=== PATIENT | male | born 1990 | race Caucasian/White ===

== ENCOUNTER 2020-02-09 10:27 | Observation (INO) | payer MEDICAID, SELFPAY ==
[2020-02-09] VITALS (9 sets, daily range): BP systolic 100–177; BP diastolic 53–106; PULSE 63–88; RESP 18–22; TEMP 36.4–36.9; O2SAT 94–100; BMI 20.4; BMI 20.5; BMI 18.6
--- NOTE | 2020-02-09 10:53 | HMH.EDUTC ---
[facility] [place] Impression: Ear problem Qualifiers: Laterality: right Qualified Code(s): H93.91 - Unspecified disorder of right ear Disposition: Still a Patient Condition on Discharge: Good Referrals: PCP,No [Primary Care Provider] - As needed Time of Disposition: 11:10 Medical Decision Making - Robinson Inquiry Pt receiving controlled substance: No Robinson was queried for this patient: No Vital Signs: 02/09/20 10:28 02/09/20 10:44 02/09/20 10:46 Temperature 97.6 F 97.8 F 97.8 F Temperature Source Oral Oral Oral Pulse Rate [Left Radial] 80 88 88 Respiratory Rate 18 18 18 Blood Pressure [Left Arm] 131/82 131/93 H 131/93 H Blood Pressure Mean [Left Arm] 98 105 105 Blood Pressure Source [Left Arm] Automatic Cuff Automatic Cuff Automatic Cuff Blood Pressure Position [Left Arm] Sitting Sitting Sitting 02 Sat by Pulse Oximetry 98 98 98 Oxygen Delivery Method Room Air Room Air Room Air 02/09/20 11:44 Temperature Temperature Source Pulse Rate [Left Radial] 67 Respiratory Rate Blood Pressure [Left Arm] 177/106 H Blood Pressure Mean [Left Arm] 129 Blood Pressure Source [Left Arm] Automatic Cuff Blood Pressure Position [Left Arm] Sitting 02 Sat by Pulse Oximetry 98 Oxygen Delivery Method Room Air - Lab Data Lab Results 02/09/20 11:59: WBC 6.0, RBC 5.40, Hgb 16.8, Hct 47.8, MCV 88.5, MCH 31.1, MCHC 35.1, RDW 13.3, Plt Count 164, MPV 8.8, Neut % (Auto) 47.8, Lymph % (Auto) 29.3, [place] % (Auto) 20.5 H, Eos % (Auto) 1.3, Baso % (Auto) 1.1, Neut # (Auto) 2.9, Lymph # (Auto) 1.8, [place] # (Auto) 1.2 H, Eos # (Auto) 0.1, Baso # (Auto) 0.1 02/09/20 11:59: Sodium 139, Potassium 4.4, Chloride 101, Carbon Dioxide 31 H, Anion Gap 11.4, BUN 13, Creatinine 1.00, Estimated Creat Clear 106, Estimated GFR 87, Est GFR ( Amer) 105, Glucose 90, Calcium 10.0, Total Bilirubin 0.4, AST 28, ALT 19, Alkaline Phosphatase 70, C-Reactive Protein 5.2 H, Total Protein 7.8, Albumin 4.9, Globulin 2.9, Albumin/Globulin Ratio 1.7 Result diagrams: 02/09/20 11:59 02/09/20 11:59 Orders (Tests/Meds): ED MEDICATIONS Discontinued Medications Generic Name Dose Route Start Last Admin Trade Name Antonella PRN Reason Stop Dose Admin Ioversol 100 ml 02/09/20 12:23 02/09/20 12:24 Ioversol-320 (68%) 50ml Bottle IV 02/09/20 12:24 100 ml ONCE ONE Administration Protocol ORDERS Category Date Time Status CT head/brain wo/w con Stat Cat Scan 02/09/20 11:15 Taken Complete Blood Count Auto Diff Stat Lab 02/09/20 11:59 Results Erythrocyte Sedimentation Rate Stat Lab 02/09/20 11:59 Results Medical Decision Narrative: Patient advised that he has been having pain in the back of his neck that shoots up the back of his head and more so on the right side behind his ear. States that he has been having infections in his right ear on and off for about 5mths that has continued to get worse States that about a week ago he had greenish colored pus drain from the right ear states that he spoke with Dr Ruiz and he told him he needed to come into the ED and get checked where his child recently was in the hospital for 2 mths with Meningitis. Spoke with Dr Ruiz and he advised that he had recommended that patient come into the ED for further evaluation and Head CT Called ED and spoke with Wendie and informed her that Dr Ruiz had advised that patient go to the ED for head CT and further work up Patient was moved to room 11 without problems or complications [facility] [place] - General Stated complaint: headache, green pus coming out of ear Time Seen by Provider: 02/09/20 10:54 Mode of Arrival: Ambulatory Source of Information: Patient Limitations: No Limitations Description of Symptoms (Recalled from Triage Doc. by RN): Pt reports R ear infection on/off for a couple months . Pt reports green drainage from R ear and posterior area headaches and pressure. HEENT Symptoms (Recalled from RN notes): Yes Resp Symptoms (Recalled fro
--- NOTE | 2020-02-09 11:11 | PC.NURSE ---
Patient stating that Dr. Ruiz sent him here for a head ct. Spoke with Dr. Ruiz who states he talked to the patient's father who had told him the patient was having green drainage from his ear and stiff neck. Per Joseph patient's son was recently discharged form the hospital for menigitis. Joseph states he saw him a little while ago and checked his ear and that it was clear but treated him for an ear infection. Patient here today complaining of ear drainage, headache, and stiff neck. Spoke with ER staff and transferred patient to room 11.
--- NOTE | 2020-02-09 11:15 | CT_ITS ---
PROCEDURE: CT HEAD/BRAIN WO/W CON CLINICAL INDICATION: abscess Green drainage from right ear, headaches right-side COMPARISON: No exams were available for comparison TECHNIQUE: IV Contrast: 100ML Isovue 370 Axial images obtained. All CT scans at the facility use one or more dose reduction, viz: automated exposure control, ma/kV adjustment per patient size (including targeted exams where dose is matched to indication, i.e. head), or iterative reconstruction technique. FINDINGS: No midline shift, mass effect, intracranial hemorrhage, hydrocephalus, or extra-axial fluid collection is evident. Following contrast administration there is excellent vascular contrast. The [id number] appears normal. There is no abnormal enhancement. The calvarium has an unremarkable appearance. There is prominent diffuse hazy opacity involving the right mastoid air cells faint densities are seen in the right external ear canal. The left mastoids are clear. Both internal auditory canals appear normal. IMPRESSION: No acute intracranial pathology noted, findings of acute right mastoiditis Dictated by: Dr. Braulio Muir MD 02/10/2020 12:11 Dr. Braulio Muir MD in [place] 02/10/2020 12:11
--- NOTE | 2020-02-09 11:29 | HMH.EDEAR ---
ED Disposition Clinical Impression: Mastoiditis Ear problem Qualifiers: Laterality: right Qualified Code(s): H93.91 - Unspecified disorder of right ear Disposition: Still a Patient Condition on Discharge: Serious - Critical Care Critical Care Time: No Attestation: On 02/09/20, the high probability of a clinically significant, sudden or life threatening deterioration of the following system(s) required my full and direct attention, intervention and personal management. The time I documented below is in addition to time spent performing reported procedures but includes the following listed in this critical care notation. Medical Decision Making - Medical Records Medical records reviewed: Yes: I reviewed the patient's medical records. - Robinson Inquiry Pt receiving controlled substance: No Vital Signs: 02/09/20 10:28 02/09/20 10:44 02/09/20 10:46 Temperature 97.6 F 97.8 F 97.8 F Temperature Source Oral Oral Oral Pulse Rate Pulse Rate [Left Radial] 80 88 88 Respiratory Rate 18 18 18 Blood Pressure Blood Pressure [Left Arm] 131/82 131/93 H 131/93 H Blood Pressure Mean [Left Arm] 98 105 105 Blood Pressure Source Blood Pressure Source [Left Arm] Automatic Cuff Automatic Cuff Automatic Cuff Blood Pressure Position Blood Pressure Position [Left Arm] Sitting Sitting Sitting 02 Sat by Pulse Oximetry 98 98 98 Oxygen Delivery Method Room Air Room Air Room Air 02/09/20 11:44 02/09/20 14:04 02/09/20 15:16 Temperature 97.8 F Temperature Source Oral Pulse Rate 64 Pulse Rate [Left Radial] 67 63 Respiratory Rate 20 Blood Pressure 100/53 L Blood Pressure [Left Arm] 177/106 H 132/83 Blood Pressure Mean [Left Arm] 129 99 Blood Pressure Source Automatic Cuff Blood Pressure Source [Left Arm] Automatic Cuff Automatic Cuff Blood Pressure Position Sitting Blood Pressure Position [Left Arm] Sitting Sitting 02 Sat by Pulse Oximetry 98 100 Oxygen Delivery Method Room Air Room Air Room Air - Lab Data Lab Results 02/09/20 11:59: WBC 6.0, RBC 5.40, Hgb 16.8, Hct 47.8, MCV 88.5, MCH 31.1, MCHC 35.1, RDW 13.3, Plt Count 164, MPV 8.8, Neut % (Auto) 47.8, Lymph % (Auto) 29.3, [place] % (Auto) 20.5 H, Eos % (Auto) 1.3, Baso % (Auto) 1.1, Neut # (Auto) 2.9, Lymph # (Auto) 1.8, [place] # (Auto) 1.2 H, Eos # (Auto) 0.1, Baso # (Auto) 0.1, Total Counted 100, Neutrophils % (Manual) 43, Band Neutrophils % 1.0, Lymphocytes % (Manual) 29, Monocytes % (Manual) 25 H, Eosinophils % (Manual) 2, Platelet Estimate Normal, RBC Morphology Normal, ESR 2 02/09/20 11:59: Sodium 139, Potassium 4.4, Chloride 101, Carbon Dioxide 31 H, Anion Gap 11.4, BUN 13, Creatinine 1.00, Estimated Creat Clear 106, Estimated GFR 87, Est GFR ( Amer) 105, Glucose 90, Calcium 10.0, Total Bilirubin 0.4, AST 28, ALT 19, Alkaline Phosphatase 70, C-Reactive Protein 5.2 H, Total Protein 7.8, Albumin 4.9, Globulin 2.9, Albumin/Globulin Ratio 1.7 02/09/20 11:59: SARS-CoV-2 IgG Ab (Rapid) Positive A, SARS-CoV-2 IgM Ab (Rapid) Negative 02/09/20 13:45: Lactate 0.9 Result diagrams: 02/09/20 11:59 02/09/20 11:59 Orders (Tests/Meds): ED MEDICATIONS Generic Name Dose Route Start Last Admin Trade Name Freq PRN Reason Stop Dose Admin Acetaminophen 650 mg 02/09/20 14:54 Acetaminophen 325mg Tab PO 03/10/20 14:53 Q4HP PRN As Needed for Fever or Pain Piperacillin Sod/Tazobactam 50 mls @ 100 mls/hr 02/09/20 21:00 02/09/20 20:02 Sod 3.375 gm/ Sodium Chloride IV 02/23/20 20:59 100 mls/hr Q8 AP Administration Protocol Vancomycin HCl 1,500 mg/ 250 mls @ 125 mls/hr 02/09/20 15:00 02/09/20 15:23 Sodium Chloride IV 02/23/20 14:59 125 mls/hr 0300,1500 AP Administration Ibuprofen 400 mg 02/09/20 14:54 Ibuprofen 400 Mg Tablet PO 03/10/20 14:53 Q6HP PRN Mild Pain Nicotine 21 mg 02/09/20 18:30 02/09/20 18:57 Nicotine 21mg/24hr Patch TD 03/10/20 18:29 21 mg DAILY AP Administration
[2020-02-09 12:08] LABS: Basophils # 0.1 K/mm3 (0-0.2); Basophils % 1.1 % (0.1-2.0); Eosinophils # 0.1 K/mm3 (0.0-0.4); Eosinophils % 1.3 % (0.1-12.0); Hematocrit 47.8 % (42.0-52.0); Hemoglobin 16.8 g/dL (14.1-18.0); Lymphocytes # 1.8 K/mm3 (0.7-4.5); Lymphocytes % 29.3 % (10-50); Mean Corpuscular HGB Conc 35.1 g/dL (31.8-35.4); Mean Corpuscular Hemoglobin 31.1 pg (27.0-31.2); Mean Corpuscular Volume 88.5 fl (80-94); Mean Platelet Volume 8.8 fl (7.4-10.4); Monocytes # 1.2 K/mm3 (0.1-1.0); Monocytes % 20.5 % (1.7-9.3); Neutrophils # 2.9 K/mm3 (1.8-7.8); Neutrophils % 47.8 % (37.0-80.0); Platelet Count 164 K/mm3 (142-424); Red Cell Distribution Width 13.3 % (11.5-17.5)
[2020-02-09 12:11] LABS: MANUAL DIFFERENTIAL MANUAL DIFFERENTIAL (MANUAL DIFF)
[2020-02-09 12:17] LABS: Alanine Aminotransferase 19 U/L (12-78); Albumin Level 4.9 g/dl (3.5-5.0); Albumin/Globulin Ratio 1.7 (1.1-1.8); Alkaline Phosphatase 70 U/L (38-126); Anion Gap 11.4 mEq/L (5-15); Aspartate Amino Transferase 28 U/L (17-59); Bilirubin,Total 0.4 mg/dl (0.2-1.3); Blood Urea Nitrogen 13 mg/dl (9-20); Carbon Dioxide 31 mmol/L (22.0-30.0); Chloride 101 mmol/L (98-107); Creatinine Clearance Estimated 106 mL/min (50-200); Estimated Glomerular Filt Rate 87 ml/min (>60); GFR (African American) 105 ML/MIN (>60); Globulin 2.9 g/dL (1.3-3.2); Glucose 90 mg/dl (74-100); Potassium 4.4 mmoL/L (3.5-5.1); Sodium 139 mmol/L (136-145); Total Protein,Serum 7.8 g/dl (6.3-8.2)
[2020-02-09 12:22] LABS: C-Reactive Protein 5.2 mg/L (0-4)
[2020-02-09 12:56] LABS: Erythrocyte Sedimentation Rate 2 mm/hr (0-15)
[2020-02-09 13:06] LABS: Eosinophils % 2 % (0-3); Lymphocytes % 29 % (10-50); Monocytes % 25 % (2-9); Neutrophils % 43 % (42-76); Platelet Estimate Normal; RBC Morphology Normal; Total Cells Counted 100
--- NOTE | 2020-02-09 13:31 | PC.NURSE ---
notified pharmacy of vancomycin consult, spoke with Gerson states he will mix zosyn as well and bring it down.
--- NOTE | 2020-02-09 13:32 | PC.NURSE ---
JACKY GODDARD speaking with Dr. Souza (ENT)
--- NOTE | 2020-02-09 13:40 | P.CONPHA_ITS ---
- Pharmacy Consult Date: 02/09/20 Time: 13:40 Referring provider: DR. WHARTON Reason for Consult:: VANCOMYCIN DOSING Allergies and ADEs:: Allergies Allergy/AdvReac Type Severity Reaction Status Date / Time No Known Allergies Allergy Verified 10/05/18 11:05 Home Medications:: Home Medications Medication Instructions Recorded Confirmed Type No Known Home Medications 02/09/20 02/09/20 History Height: 1.85 m Weight: 70.307 kg Laboratory Results:: Laboratory Results - last 24 hr 02/09/20 11:59: WBC 6.0, RBC 5.40, Hgb 16.8, Hct 47.8, MCV 88.5, MCH 31.1, MCHC 35.1, RDW 13.3, Plt Count 164, MPV 8.8, Neut % (Auto) 47.8, Lymph % (Auto) 29.3, [place] % (Auto) 20.5 H, Eos % (Auto) 1.3, Baso % (Auto) 1.1, Neut # (Auto) 2.9, Lymph # (Auto) 1.8, [place] # (Auto) 1.2 H, Eos # (Auto) 0.1, Baso # (Auto) 0.1, Total Counted 100, Neutrophils % (Manual) 43, Band Neutrophils % 1.0, Lymphocytes % (Manual) 29, Monocytes % (Manual) 25 H, Eosinophils % (Manual) 2, Platelet Estimate Normal, RBC Morphology Normal, ESR 2 02/09/20 11:59: Sodium 139, Potassium 4.4, Chloride 101, Carbon Dioxide 31 H, Anion Gap 11.4, BUN 13, Creatinine 1.00, Estimated Creat Clear 106, Estimated GFR 87, Est GFR ( Amer) 105, Glucose 90, Calcium 10.0, Total Bilirubin 0.4, AST 28, ALT 19, Alkaline Phosphatase 70, C-Reactive Protein 5.2 H, Total Protein 7.8, Albumin 4.9, Globulin 2.9, Albumin/Globulin Ratio 1.7 Assessment and Plan - Assessment and plan all Dx Assessment and Plan for all problems:: Pharmacokinetic dosing service Patient: Floor: Age: 29 yo Serum creatinine: 1 mg/dL Height: 72.8 Inches Weight (kg): 70 IBW (kg): 79.44 Dosing wt(kg): 70 Estimated Creatinine clearance (ml/min): 106.0 CRCL method: Cockcroft and Gault using ibw(default). Drug selected: Vancomycin Loading dose (mg): 0 Vd (liters): 56.0 (factor used: 0.8 L/kg) Robel (hr-1): 0.092 Half life (h rs): 7.53 Recommended dose: 1500 mg Interval: 12 hrs Infusion time (hrs): 2.0 Predicted peak (mcg/mL): 36.6 Predicted trough (mcg/mL): 14.59 Total body weight is being used for vancomycin dosing. Recommendations: Give Vancomycin 1500 mg q 12 hrs with an expected Cpeak of 36.6 mcg/ml and an expected Ctrough of 14.59 mcg/ml Thank you for the consult, will continue to follow. Signature:
--- NOTE | 2020-02-09 13:45 | PC.NURSE ---
service dr jones
--- NOTE | 2020-02-09 13:48 | PC.NURSE ---
Dr Yip speaking to Dr Sheikh at this time.
--- NOTE | 2020-02-09 13:49 | PC.NURSE ---
R EAR CULTURE SENT TO LAB
--- NOTE | 2020-02-09 13:58 | PC.NURSE ---
LUNCH TRAY ORDERED
[2020-02-09 15:24] LABS: Coronavirus 19 IgG Antibody Positive (Negative); Coronavirus 19 IgM Antibody Negative (Negative)
[2020-02-09 17:23] LABS: Lactic Acid 0.9 mmol/L (0.7-2.1)
--- NOTE | 2020-02-09 18:47 | PC.NURSE ---
PT IS RESTING IN BED. NO COMPLAINTS OF DISCOMFORT. AMBULATED IN THE ROOM AND TO THE BATHROOM. ALERT AND ORIENTED X4. EATING AND DRINKING WELL. LUNG SOUNDS CLEAR. BOWEL SOUNDS NORMAL. VSS. WILL CONTINUE TO MONITOR.
[2020-02-10 03:29] VITALS: O2SAT 100
[2020-02-10 03:37] VITALS: BP 99/59; PULSE 53; RESP 14; TEMP 36.6; O2SAT 100
[2020-02-10 04:52] VITALS: BMI 18.3
[2020-02-10 07:31] LABS: Basophils # 0.1 K/mm3 (0-0.2); Basophils % 0.8 % (0.1-2.0); Eosinophils # 0.1 K/mm3 (0.0-0.4); Eosinophils % 2.6 % (0.1-12.0); Hematocrit 49.4 % (42.0-52.0); Hemoglobin 16.8 g/dL (14.1-18.0); Lymphocytes # 1.6 K/mm3 (0.7-4.5); Lymphocytes % 28.7 % (10-50); Mean Corpuscular HGB Conc 33.9 g/dL (31.8-35.4); Mean Corpuscular Hemoglobin 30.9 pg (27.0-31.2); Mean Corpuscular Volume 91.2 fl (80-94); Mean Platelet Volume 8.9 fl (7.4-10.4); Monocytes % 17.2 % (1.7-9.3); Neutrophils # 2.8 K/mm3 (1.8-7.8); Neutrophils % 50.7 % (37.0-80.0); Platelet Count 164 K/mm3 (142-424); Red Blood Count 5.42 M/mm3 (4.60-6.20); Red Cell Distribution Width 12.8 % (11.5-17.5); White Blood Count 5.5 K/mm3 (4.8-10.8)
[2020-02-10 07:38] LABS: Chloride 102 mmol/L (98-107); Potassium 3.9 mmoL/L (3.5-5.1); Sodium 141 mmol/L (136-145)
[2020-02-10 07:41] LABS: Alanine Aminotransferase 19 U/L (12-78); Albumin Level 4.8 g/dl (3.5-5.0); Albumin/Globulin Ratio 1.7 (1.1-1.8); Alkaline Phosphatase 84 U/L (38-126); Anion Gap 11.9 mEq/L (5-15); Aspartate Amino Transferase 35 U/L (17-59); Bilirubin,Total 0.5 mg/dl (0.2-1.3); Blood Urea Nitrogen 15 mg/dl (9-20); Calcium 9.7 mg/dl (8.4-10.2); Carbon Dioxide 31 mmol/L (22.0-30.0); Creatinine Clearance Estimated 79 mL/min (50-200); Estimated Glomerular Filt Rate 71 ml/min (>60); GFR (African American) 85 ML/MIN (>60); Globulin 2.9 g/dL (1.3-3.2); Glucose 98 mg/dl (74-100); Total Protein,Serum 7.7 g/dl (6.3-8.2)
[2020-02-10 07:47] VITALS: BP 132/64; PULSE 60; RESP 18; TEMP 36.7; O2SAT 99
--- NOTE | 2020-02-10 08:57 | P.CONPHA_ITS ---
[facility] Pharmacy VTE Monitoring - Patient Demographics Admission date: 02/10/20 Report Date: 02/10/20 Time: 08:57 Allergies/Adverse Reactions: Patient Allergies No Known Allergies Allergy (Verified 10/05/18 11:05) Height: 1.85 m Weight: 62.652 kg Patient Problems: Current Active Problems Ear problem (Acute) Mastoiditis (Acute) - VTE Risk Labs: VTE Related Lab Results Hgb 16.8 g/dL (14.1-18.0) 02/10/20 07:20 Hct 49.4 % (42.0-52.0) 02/10/20 07:20 Plt Count 164 K/mm3 (142-424) 02/10/20 07:20 BUN 15 mg/dl (9-20) 02/10/20 07:20 Creatinine 1.20 mg/dl (0.66-1.25) 02/10/20 07:20 Estimated Creat Clear 79 mL/min (50-200) 02/10/20 07:20 VTE Score: 0 - Prophylaxis Types of VTE Prophylaxis: TEDS Knee High (FUNMILAYO HOSE ORDER PLACED.)
--- NOTE | 2020-02-10 08:58 | HMH.HP ---
*Admission Date: 02/09/20 *Chief complaint: Pain around right ear *History of present illness: 29 year old male with no PCP and no known medical problems presented to [facility] yesterday complaining of patient in and around his right ear. Patient stated he had an injury to his ear about 13 years ago that caused a perforation of his ear drum. He had not had any problems with it until about 4 months ago when he began to have yellow drainage from his ear. He states he treated the drainage with Cipro ear drops a few times and had taken some Clindamycin by mouth a few times over the last few weeks. [facility] History Medical History: Denies:: Cancer, Diabetes Mellitus Type 1, Diabetes Mellitus Type 2, MRSA *Have you ever received a pneumonia vaccine?: No *Have you received a flu vaccine this season?: No Other Medical History: Reports: Other (traumatic right TM perforation) Other Surgeries: Yes: No Previous Surgery Amputation: No Fractures: Yes (FACIAL) - *Social History Last grade of school completed: 7th or 8th Smoking Status: Current every day smoker Tobacco Type: cigarettes # Packs/Day (cigarettes): 1 Alcohol Intake: never *Occupational Status:: employed Housing: house Household Members: spouse *Travel in the last 8 weeks: None Family Hx:: Coronary Artery Disease Review of Systems - Constitutional Denies fever(s) - Eyes Denies double vision - ENT Denies change in voice - *Cardiovascular Denies chest pain - *Respiratory Denies shortness of breath - *Gastrointestinal Denies abdominal pain - *Genitourinary Denies difficulty urinating - *Musculoskeletal Denies joint pain - Integumentary/Breasts Denies rash - *Neurologic Reports headache(s) - Psychiatric Denies confusion - Endocrine Denies flushing - Hematologic/Lymphatic Denies easy bleeding Meds Home Medications Medication Instructions Recorded Confirmed Type No Known Home Medications 02/09/20 02/09/20 History Allergies Allergy/AdvReac Type Severity Reaction Status Date / Time No Known Allergies Allergy Verified 10/05/18 11:05 Exam Vital signs and Labs for Last 24 Hours: Temp Pulse Resp BP Pulse Ox 98.0 F 60 18 132/64 99 02/10/20 07:47 02/10/20 07:47 02/10/20 07:47 02/10/20 07:47 02/10/20 07:47 Laboratory Results - last 24 hr 02/09/20 11:59: WBC 6.0, RBC 5.40, Hgb 16.8, Hct 47.8, MCV 88.5, MCH 31.1, MCHC 35.1, RDW 13.3, Plt Count 164, MPV 8.8, Neut % (Auto) 47.8, Lymph % (Auto) 29.3, [place] % (Auto) 20.5 H, Eos % (Auto) 1.3, Baso % (Auto) 1.1, Neut # (Auto) 2.9, Lymph # (Auto) 1.8, [place] # (Auto) 1.2 H, Eos # (Auto) 0.1, Baso # (Auto) 0.1, Total Counted 100, Neutrophils % (Manual) 43, Band Neutrophils % 1.0, Lymphocytes % (Manual) 29, Monocytes % (Manual) 25 H, Eosinophils % (Manual) 2, Platelet Estimate Normal, RBC Morphology Normal, ESR 2 02/09/20 11:59: Sodium 139, Potassium 4.4, Chloride 101, Carbon Dioxide 31 H, Anion Gap 11.4, BUN 13, Creatinine 1.00, Estimated Creat Clear 106, Estimated GFR 87, Est GFR ( Amer) 105, Glucose 90, Calcium 10.0, Total Bilirubin 0.4, AST 28, ALT 19, Alkaline Phosphatase 70, C-Reactive Protein 5.2 H, Total Protein 7.8, Albumin 4.9, Globulin 2.9, Albumin/Globulin Ratio 1.7 02/09/20 11:59: SARS-CoV-2 IgG Ab (Rapid) Positive A, SARS-CoV-2 IgM Ab (Rapid) Negative 02/09/20 13:45: Lactate 0.9 02/10/20 07:20: WBC 5.5, RBC 5.42, Hgb 16.8, Hct 49.4, MCV 91.2, MCH 30.9, MCHC 33.9, RDW 12.8, Plt Count 164, MPV 8.9, Neut % (Auto) 50.7, Lymph % (Auto) 28.7, [place] % (Auto) 17.2 H, Eos % (Auto) 2.6, Baso % (Auto) 0.8, Neut # (Auto) 2.8, Lymph # (Auto) 1.6, [place] # (Auto) 1.0, Eos # (Auto) 0.1, Baso # (Auto) 0.1 02/10/20 07:20: Sodium 141, Potassium 3.9, Chloride 102, Carbon Dioxide 31 H, Anion Gap 11.9, BUN 15, Creatinine 1.20, Estimated Creat Clear 79, Estimated GFR 71, Est GFR ( Amer) 85, Glucose 98, Calcium 9.7, Total Bilirubin 0.5, AST 35, ALT 19, Alkaline Phosphatase 84, Total Protein 7.7,
[2020-02-10 15:22] VITALS: BP 121/76; PULSE 71; RESP 18; TEMP 36.9; O2SAT 99
--- NOTE | 2020-02-10 17:32 | PC.NURSE ---
[id number] - Dr. Yip notified that pt is leaving AMA. Pt was instructed on need for IV antibiotics and that his blood culture bottle was positive for Staph Aureus. Pt verbalized understanding, but that he was still leaving d/t him and his arguing and that his was leaving him and taking the kids . IV taken out by nurse and pt given AMA paper along w/ instructions to call physician in AM w/ [facility] phone#. [phone] - Pt was escorted to ED admissions lobby by [facility] staff.
--- NOTE | 2020-02-11 11:56 | P.DS_ITS ---
General - General Admission date:: 02/09/20 Discharge date: 02/10/20 HPI HPI: Mr. Johnson was a 29 year old male with no PCP and no known medical problems who presented to [facility] [place] complaining of pain in and around his right ear. Patient stated he had an injury to his ear about 13 years ago that caused a perforation of his ear drum. He had not had any problems with it until about 4 months ago when he began to have yellow drainage from his ear. He stated he had treated the drainage with Cipro ear drops a few times and had taken some Clindamycin by mouth a few times over the few weeks prior. He was reportedly sent by another provider for head CT out of concern for possible abscess and intracranial extension due to recent meningitis infection in patient's son. In the ED, labs were non-actionable. CT was concerning for acute mastoiditis. He was given IV Vancomycin and Zosyn and admitted to medical service with plans for ENT consultation. Hospital Course Hospital Course: Despite resting comfortably overnight, the following afternoon the patient notified nursing staff that he planned to leave the hospital Against Medical Advice reportedly due to family issues. He was cautioned against his decision due to preliminary blood cultures growing Staph Aureus and requiring continued IV antibiotic treatment. Nevertheless, he proceeded to leave [facility]. Dr. Yip was notified of his decision and his IV was removed. He was provided the phone number for the office of A and instructed to call for followup. At the time of this writing, his right ear wound culture had also grown a cash-sensitive Pseudomonas species. 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
== END 2020-02-10 16:55 | disposition left against medical advice (07) ==
LOC: UTC 11:04 → ER 11:10 → 2ND 02-10 09:17
PROVIDERS: Admitting Provider Family Medicine; Emergency Provider Emergency Medicine; Visit Provider Family Medicine
DX: H70.91 Unspecified mastoiditis, right ear (principal); H72.01 Central perforation of tympanic membrane, right ear; Z72.0 Tobacco use
CPT/HCPCS: 36415; 70470; 80053; 83605; 85007; 85025; 85651; 86140; 86328; 87040; 87070; 87077; 87186; 87205; 96365; 99284; G0378; J2543; J3370; Q9967

== ENCOUNTER 2020-02-11 04:28 | Emergency (ER) | payer MEDICAID, SELFPAY ==
[2020-02-11 04:30] VITALS: BP 136/84; PULSE 82; RESP 16; TEMP 36.5; O2SAT 98; BMI 20.4
--- NOTE | 2020-02-11 04:38 | ECG_ITS ---
APPROVED REPORT Exam: Resting ECG HR:71 bpm ECG Measurements Heart Rate 71 AXES MA 96 P 52 QRSd 88 QRS 86 QT 406 T 81 QTc 441 Conclusion Sinus rhythm with sinus arrhythmia with short MA Otherwise normal ECG Electronically signed by : Marcio Hyde, 02/11/2020 19:09:16
--- NOTE | 2020-02-11 04:45 | XR_ITS ---
PROCEDURE: XR CHEST 2V CLINICAL HISTORY: chest heaviness Smoker COMPARISON: No exams were available for comparison FINDINGS: The cardiomediastinal silhouette and pulmonary vascularity are within normal limits. There is mild hyperinflation. There are slight increased markings in the right infrahilar region medially which may only be due to summation artifact. Cannot exclude patchy infiltrate. Follow-up suggested. No acute bony abnormalities. IMPRESSION: Possible patchy right infrahilar infiltrate with hyperinflation Dictated by: Rafa Akhtar MD 02/11/2020 05:41 Rafa Akhtar MD in [place] 02/11/2020 05:41
[2020-02-11 05:20] LABS: Anion Gap 12.6 mEq/L (5-15); Blood Urea Nitrogen 12 mg/dl (9-20); Calcium 9.6 mg/dl (8.4-10.2); Carbon Dioxide 29 mmol/L (22.0-30.0); Chloride 101 mmol/L (98-107); Creatinine Clearance Estimated 106 mL/min (50-200); Estimated Glomerular Filt Rate 87 ml/min (>60); GFR (African American) 105 ML/MIN (>60); Glucose 102 mg/dl (74-100); Potassium 3.6 mmoL/L (3.5-5.1); Sodium 139 mmol/L (136-145)
[2020-02-11 05:29] LABS: Hematocrit 45.8 % (42.0-52.0); Mean Corpuscular HGB Conc 32.8 g/dL (31.8-35.4); Mean Corpuscular Hemoglobin 29.6 pg (27.0-31.2); Mean Corpuscular Volume 90.4 fl (80-94); Mean Platelet Volume 8.8 fl (7.4-10.4); Platelet Count 164 K/mm3 (142-424); Red Blood Count 5.07 M/mm3 (4.60-6.20); Red Cell Distribution Width 12.5 % (11.5-17.5); White Blood Count 8.2 K/mm3 (4.8-10.8)
[2020-02-11 05:30] LABS: Basophils # 0.1 K/mm3 (0-0.2); Basophils % 0.7 % (0.1-2.0); Eosinophils # 0.2 K/mm3 (0.0-0.4); Eosinophils % 2.4 % (0.1-12.0); Lymphocytes # 2.1 K/mm3 (0.7-4.5); Lymphocytes % 25.3 % (10-50); Monocytes # 1.1 K/mm3 (0.1-1.0); Monocytes % 13.3 % (1.7-9.3); Neutrophils # 4.5 K/mm3 (1.8-7.8); Neutrophils % 54.8 % (37.0-80.0)
[2020-02-11 05:33] LABS: Benzodiazepines Screen,Urine Negative ng/ml (<200)
[2020-02-11 05:34] LABS: Amphetamine/Metha Screen,Urine Negative ng/ml (<1000); Barbiturates Screen,Urine Negative ng/ml (<200); Troponin I < 0.01 ng/ml (0.00-0.034)
[2020-02-11 05:35] LABS: Methadone Screen,Urine Negative ng/ml (<300)
[2020-02-11 05:36] LABS: Cannabinoid Screen,Urine Positive ng/ml (<50); Cocaine Screen,Urine Negative ng/ml (<300)
[2020-02-11 05:37] LABS: Opiate Screen,Urine Negative ng/ml (<300)
[2020-02-11 05:38] LABS: Phencyclidine Screen,Urine Negative ng/ml (<25)
--- NOTE | 2020-02-11 05:45 | HMH.EDHA ---
ED Disposition Clinical Impression: Tobacco use, Pseudomonas aeruginosa infection Tympanic membrane central perforation Qualifiers: Laterality: right Qualified Code(s): H72.01 - Central perforation of tympanic membrane, right ear Mastoiditis Qualifiers: Laterality: right Qualified Code(s): H70.91 - Unspecified mastoiditis, right ear Disposition: Home, Self-Care Condition on Discharge: Good Instructions: DI for Headache Additional Instructions: see pcp for follow up and ent Prescriptions: levoFLOXacin [Levaquin 500mg tab] 500 mg PO DAILY #7 tab Transmission Status: Pending to [id number] Referrals: Ez Yip MD [Primary Care Provider] - Yaya Souza MD [Staff Physician] - - Critical Care Critical Care Time: No Attestation: On 02/11/20, the high probability of a clinically significant, sudden or life threatening deterioration of the following system(s) required my full and direct attention, intervention and personal management. The time I documented below is in addition to time spent performing reported procedures but includes the following listed in this critical care notation. Medical Decision Making - Medical Records Medical records reviewed: Yes: I reviewed the patient's medical records. - Robinson Inquiry Pt receiving controlled substance: No Vital Signs: 02/11/20 04:30 02/11/20 05:52 02/11/20 06:30 Temperature 97.7 F Temperature Source Oral Pulse Rate [Right Brachial] 82 63 58 L Respiratory Rate 16 17 Blood Pressure [Right Arm] 136/84 121/73 112/68 Blood Pressure Mean [Right Arm] 101 89 82 Blood Pressure Source [Right Arm] Automatic Cuff Blood Pressure Position [Right Arm] Supine 02 Sat by Pulse Oximetry 98 97 98 Oxygen Delivery Method Room Air - Lab Data Lab results reviewed: Yes: I reviewed the patient's lab results. Lab Results 02/11/20 04:45: WBC 8.2 D, RBC 5.07, Hgb 15.0 D, Hct 45.8, MCV 90.4, MCH 29.6, MCHC 32.8, RDW 12.5, Plt Count 164, MPV 8.8, Neut % (Auto) 54.8, Lymph % (Auto) 25.3, [place] % (Auto) 13.3 H, Eos % (Auto) 2.4, Baso % (Auto) 0.7, Neut # (Auto) 4.5, Lymph # (Auto) 2.1, [place] # (Auto) 1.1 H, Eos # (Auto) 0.2, Baso # (Auto) 0.1 02/11/20 04:45: Sodium 139, Potassium 3.6, Chloride 101, Carbon Dioxide 29, Anion Gap 12.6, BUN 12, Creatinine 1.00, Estimated Creat Clear 106, Estimated GFR 87, Est GFR ( Amer) 105 D, Glucose 102 H, Calcium 9.6, Troponin I < 0.01 02/11/20 04:45: Urine Opiates Screen Negative, Urine Methadone Screen Negative, Ur Barbituates Screen Negative, Ur Phencyclidine Scrn Negative, Ur Amphetamines Screen Negative, U Benzodiazepines Scrn Negative, Urine Cocaine Screen Negative, U Marijuana (THC) Screen Positive H 02/11/20 04:45: ESR 6 02/11/20 04:45: C-Reactive Protein 10.0 H D, Procalcitonin 0.195 02/11/20 04:45: Urine Color Yellow, Urine Appearance Clear, Urine pH 6.0, Ur Specific [place] >= 1.030, Urine Protein Negative, Urine Glucose (UA) Negative, Urine Ketones Negative, Urine Blood Negative, Urine Nitrate Negative, Urine Bilirubin Negative, Urine Urobilinogen 1.0, Ur Leukocyte Esterase Negative, Urine WBC 3-5, Ur Squamous Epith Cells Occasional Result diagrams: 02/11/20 04:45 02/11/20 04:45 Orders (Tests/Meds): ED MEDICATIONS Generic Name Dose Route Start Last Admin Trade Name Freq PRN Reason Stop Dose Admin Sodium Chloride 1,000 mls @ 999 mls/hr 02/11/20 05:00 02/11/20 04:53 Sod Chlor 0.9% 1000ml Bag IV 02/11/20 06:00 999 mls/hr .Q1H1M AP Administration Discontinued Medications Generic Name Dose Route Start Last Admin Trade Name Freq PRN Reason Stop Dose Admin Piperacillin Sod/Tazobactam 50 mls @ 100 mls/hr 02/11/20 06:12 02/11/20 06:13 Sod 3.375 gm/ Sodium Chloride IV 02/11/20 06:41 100 mls/hr ONCE ONE Administration Protocol Ketorolac Tromethamine 30 mg 02/11/20 04:49 02/11/20 04:53 Ketorolac 30mg/Ml Vial IV 02/11/20 04:50 30 mg ONCE ONE Administration M
[2020-02-11 05:52] VITALS: BP 121/73; PULSE 63; O2SAT 97
[2020-02-11 05:58] LABS: Microscopic, Urine URINE MICROSCOPIC (MICROSCOPIC)
[2020-02-11 06:09] LABS: Appearance,Urine CLEAR (Clear); Bilirubin,Urine Negative (Negative); Blood, Urine Negative (Negative); Color,Urine YELLOW (Yellow); Glucose,Urine (UA) Negative (Negative); Ketones,Urine Negative (Negative); Leukocyte Esterase,Urine Negative (Negative); Nitrate,Urine Negative (Negative); Protein,Urine Negative (Negative); Specific Gravity, Urine >= 1.030 (1.005-1.030)
[2020-02-11 06:19] LABS: Erythrocyte Sedimentation Rate 6 mm/hr (0-15)
[2020-02-11 06:20] LABS: Squamous Epithelial Cell,Urine Occasional #/hpf (0-5)
[2020-02-11 06:24] LABS: Procalcitonin 0.195 ng/mL (0.0-2.0)
[2020-02-11 06:30] VITALS: BP 112/68; PULSE 58; RESP 17; O2SAT 98
--- NOTE | 2020-02-11 06:54 | PC.NURSE ---
Dr peters speaking with Dr schuster @ this time
[2020-02-11 07:01] VITALS: BP 115/69; PULSE 79; RESP 16; TEMP 36.7; O2SAT 98
== END 2020-02-11 07:08 | disposition home or self-care (01) ==
PROVIDERS: Emergency Provider Emergency Medicine; PCP Family Medicine
DX: H72.01 Central perforation of tympanic membrane, right ear (principal); H70.91 Unspecified mastoiditis, right ear; A49.8 Other bacterial infections of unspecified site
CPT/HCPCS: 71046; 80048; 80305; 81001; 84145; 84484; 85025; 85651; 86140; 93005; 96365; 96367; 99284; J2543

== ENCOUNTER 2021-09-29 08:57 | Emergency (ER) | payer SELFPAY ==
[2021-09-29 09:05] VITALS: BP 139/78; PULSE 80; RESP 16; O2SAT 99; BMI 19.1
--- NOTE | 2021-09-29 09:07 | XR_ITS ---
FINAL REPORT CLINICAL HISTORY: injured during wrestling FINDINGS: LEFT ANKLE: Three views of the left ankle were obtained. There is a small calcification along the proximal dorsal navicular worrisome for a small avulsion fracture. The joint spaces and mortise are intact. There is dorsal midfoot soft tissue swelling. IMPRESSION: Small calcification worrisome for a small avulsion fracture from the proximal dorsal navicular. Reviewed, Interpreted and Dictated by Eron Kelly III, MD Transcribed by Arnaud Lakhani Authenticated and [facility]
--- NOTE | 2021-09-29 09:07 | XR_ITS ---
FINAL REPORT CLINICAL HISTORY: injured during wrestling FINDINGS: LEFT FOOT: Three views of the left foot were obtained. There is a small calcification along the proximal dorsal navicular worrisome for a small avulsion fracture. The joint spaces are intact. There is dorsal midfoot soft tissue swelling. IMPRESSION: Small calcification worrisome for a small avulsion fracture from the proximal dorsal navicular. Reviewed, Interpreted and Dictated by Eron Kelly III, MD Transcribed by Arnaud Lakhani Authenticated and . [facility]
[2021-09-29 09:25] VITALS: BP 139/78; PULSE 80; RESP 16; TEMP 36.7; O2SAT 99; BMI 19.2
--- NOTE | 2021-09-29 09:43 | HMH.EDUTC ---
[facility] [place] Disposition Clinical Impression: Ankle sprain Qualifiers: Encounter type: initial encounter Involved ligament of ankle: unspecified ligament Laterality: left Qualified Code(s): S93.402A - Sprain of unspecified ligament of left ankle, initial encounter Disposition: Home, Self-Care Condition on Discharge: Good Instructions: How to Use Crutches, How To Perform RICE (Rest, Ice, Compress, Elevate), How to Use a Walking Boot Additional Instructions: *weight bearing as tolerated *RICE, Rest the extremity, Ice 15-20 minutes 3-4 times daily, Compress- wear the tonny wrap as discussed as much as possible to help reduce swelling and pain, Elevate the extremity when at rest *Walking boot is for support and help control swelling, use it except in the shower. Be sure that is not to tight but not to loose either and use crutches to get around *Elevate when resting *Ibuprofen 600 every 6-8 hours as needed for pain an inflammation. If need something more can take Tylenol in between doses of Ibuprofen to help Immediately follow up with your family doctor for new or worsening of symptoms, or no noticeable improvement over the next 3-5 days You can call back to the [facility] [[email or web address]] later today for the official reading of your xray results Follow up with Orthopedics or Podiatry if needed Return if needed Straight to ER if any life threatening symptoms Referrals: Provider,Referral, [Primary Care Provider] - As needed Ritika Pride DPM [Staff Physician] - Mark Snow JR, MD [Physician] - Time of Disposition: 09:56 Medical Decision Making - Robinson Inquiry Pt receiving controlled substance: No Robinson was queried for this patient: No Vital Signs: 09/29/21 09:05 09/29/21 09:25 09/29/21 10:09 Temperature 98.0 F 98.0 F Temperature Source Oral Pulse Rate 80 Pulse Rate [Left Radial] 80 80 Respiratory Rate 16 16 16 Blood Pressure 139/78 Blood Pressure [Right Arm] 139/78 139/78 Blood Pressure Mean [Right Arm] 98 98 Blood Pressure Source [Right Arm] Automatic Cuff Automatic Cuff Blood Pressure Position [Right Arm] Sitting Sitting 02 Sat by Pulse Oximetry 99 99 Oxygen Delivery Method Room Air Room Air - Radiology Data #1 Image(s): Ankle Image Reviewed: Yes I reviewed the patient's radiology image, Yes I reviewed the patient's radiology image w/the ED provider Preliminary Findings: No Fracture Seen #2 Image(s): Foot/Toes Image Reviewed: Yes I reviewed the patient's radiology image, Yes I reviewed the patient's radiology image w/the ED provider Preliminary Findings: No Fracture Seen Medical Decision Narrative: Patient refused walking boot and crutches States that he has them at home Attempted contact multiple times to inform patient of xray reading no answer will attempt to call back [facility] [place] HPI - General Stated complaint: possible broken left ankle Time Seen by Provider: 09/29/21 09:43 Mode of Arrival: Ambulatory Source of Information: Patient Limitations: No Limitations Description of Symptoms (Recalled from Triage Doc. by RN): PATIENT REPORTS HE WAS AT [employer] [employer] ON TUESDAY AND HIS ANKLE WAS TWISTED BY HIS OPPONENT. HE STATES HE HEARD HIS ANKLE POP THREE TIMES AND IS HAVING PAIN AND SWELLING HEENT Symptoms (Recalled from RN notes): No Resp Symptoms (Recalled from RN notes): No Skin Symptoms (Recalled from RN notes): No MS Symptoms (Recalled from RN notes): Yes Functional Status (Recalled from RN notes): WNL - History of Present Illness Provider Complaint: Patient states that he was wresling last night when his opponent grabbed his left ankle and twisted it States that he felt a pop and has been having pain and swelling ever since States that he has pain when he tries to put weight on it so today he came in to get it checked out - Related Data Previous Rx's Medication Instructions Recorded levoFLOXacin [Levaquin 500mg 500 mg PO DAILY #7 tab 02/11/20 tab] Allergies Allergy/AdvReac Type S
[2021-09-29 10:09] VITALS: BP 139/78; PULSE 80; RESP 16; TEMP 36.7; O2SAT 99
--- NOTE | 2021-09-29 10:09 | PC.NURSE ---
PATIENT REFUSED WALKING BOOT AND CRUTCHES, STATES HE HAS THEM AT HOME
== END 2021-09-29 10:16 | disposition home or self-care (01) ==
PROVIDERS: Emergency Provider Nurse Practitioner
DX: S93.402A Sprain of unspecified ligament of left ankle, initial encounter (principal); Y93.72 Activity, wrestling
CPT/HCPCS: 73610; 73630; 99283

== ENCOUNTER 2024-04-15 14:58 | Emergency (ER) | payer MEDICAID, SELFPAY ==
[2024-04-15 15:00] VITALS: BP 160/86; PULSE 69; RESP 24; TEMP 36.8; O2SAT 100; BMI 19.1
--- NOTE | 2024-04-15 15:22 | XR_ITS ---
PROCEDURE INFORMATION: Exam: XR Left Hand Exam date and time: 04/15/2024 3:27 PM Age: 34 years old Clinical indication: Injury or trauma; Other: Crushed while working on car; Work related; Blunt trauma (contusions or hematomas); Hand; Left; Additional info: Crush injury 3,4,5 digit TECHNIQUE: Imaging protocol: Radiologic exam of the left hand. Views: 3 or more views. COMPARISON: No relevant prior studies available. FINDINGS: Bones/joints: Mildly displaced transverse fracture of the proximal to mid diaphysis of the 4th distal phalanx. No other fracture. No dislocation. Soft tissues: Normal. IMPRESSION: Mildly displaced transverse fracture of the proximal to mid diaphysis of the 4th distal phalanx.
--- NOTE | 2024-04-15 15:25 | PC.NURSE ---
I rounded on the pt and took him a warm blanket. no needs voiced. no new complaints. call wan in reach.
--- NOTE | 2024-04-15 15:32 | ED_ITS ---
Discharge Plan Disposition Patient Disposition: Left Against Medical Advice Prescriptions Prescriptions: No Action levofloxacin 500 MG tablet 500 mg PO DAILY Qty: 7 0RF Referrals Follow up/Referrals: Margo Carter APRN [Primary Care Provider] - See instructions Clinical Impressions Clinical Impression: Left against medical advice Print Language Print Language: Martiniquais Discharge ED Provider: Darien Angel General Adult HPI <Kori Ball APRN - Last Filed: 04/15/24 17:45> General Chief complaint: Trauma Stated complaint: AO 04/15/24 1430 left hand injury Time Seen by Provider: 04/15/24 15:03 Mode of Arrival: Ambulatory Source of Information: Patient Limitations: No Limitations Description of Symptoms (Recalled from ER Triage Doc. by RN): Patient presents ambulatory to triage. States he was working on a car and had the vehicle on a kelby. States when he went to pull the tire off, the kelby slipped, the vehicle fell, and pinned his left hand between the tire and the wheel well. States, I almost got my hand out. States the impact was to the left third, fourth, and fifth digits. Blood noted around the nail beds to those three fingers. Pulse intact. Capillary refill <3 seconds. Movement intact. Decreased sensation to the left middle finger. History of Present Illness HPI narrative: 34-year-old male presents to the ED after crush injury of his left upper extremity. Related Data Previous Rx's ?Medication ?Instructions ?Recorded levofloxacin 500 mg tablet 500 mg PO DAILY #7 tabs 02/11/20 Allergies Allergy/AdvReac Type Severity Reaction Status Date / Time No Known Allergies Allergy Verified 02/19/20 14:08 PFS <Kori Ball APRN - Last Filed: 04/15/24 17:45> [facility] Disclaimer: The information contained in this section may have been updated after the patient was seen, as this information can be updated by other users. Social History Smoking Status: Current every day smoker tobacco type: cigarettes packs per day: 1 alcohol intake: never current occupational status: employed Travel in the last 8 weeks: None household members: spouse housing: house caffeine: No Have you lived/traveled outside [place] in past 30 days?: No Contact w/someone who lives/traveled outside US past 30 days?: No Exposure to someone with infectious disease in past 14 days?: No Do you have a fever (greater than 100.4 F or 38 C)?: No Have you tested positive for COVID-19: No Exposed to someone with COVID-19 in past 14 days?: No Do you have a sore throat?: No Do you have a cough?: No Do you have any weakness?: No Do you have any diarrhea?: No Are you experiencing any unusual bleeding?: No Do you have any muscle aches/pain?: No Do you have any abdominal pain?: No Are you experiencing loss of taste or smell?: No Other Medical History Have you received the Flu Vaccine for this season: Yes Have you received the Pneumonia Vaccine: No <Kori Ball APRN - Last Filed: 04/15/24 17:45> ROS Obtained: Yes Systems reviewed as appropriate & no additional complaints except as documented Physical Exam <Kori Ball APRN - Last Filed: 04/15/24 17:45> General General appearance: alert and in no apparent distress Head Head exam: atraumatic and normocephalic Eye Eye exam: Present normal appearance and PERRL ENT ENT exam: Present normal exam Neck Neck exam: Present normal inspection Chest Chest inspection: Present normal inspection and symmetric chest wall rise; Absent tenderness Respiratory Respiratory exam: Present normal lung sounds bilaterally Cardiovascular Cardiovascular exam: Present regular rate Abdominal Exam Abdominal exam: Present soft and normal bowel sounds; Absent tenderness Extremities Exam Extremities exam: Present full ROM and other (Left third and fourth distal superficial laceration under nailbed, nail beds are intact. ) Back Exam Back exam: Present normal inspection and full ROM Neurological Exam Neurological exam: Present alert and oriented X3 Psychiatric Psychiatric exam: Present normal affect and normal mood Skin Skin exam: Present warm and dry Medical Decision Making <Kori Ball APRN - Last Filed: 04/15/24 17:45> Medical Records Screening: Per USPSTF and CDC recommendations, given the prevalence of disease in our region, it is our hospital?s policy to screen for HIV and viral Hepatitis for all patients aged 18 and over and those with ongoing risk factors. Robinson Inquiry Pt receiving controlled substance: No Robinson was queried for this patient: No Vital Signs: 04/15/24 15:00 04/15/24 15:57 04/15/24 16:28 Temperature 98.2 F 99.1 F Temperature Source Oral Pulse Rate 66 82 Pulse Rate [Radial] 69 Respiratory Rate 24 18 Blood Pressure 135/80 135/80 Blood Pressure [R Arm] 160/86 H Blood Pressure Mean [R Arm] 110 Blood Pressure Source [R Arm] Automatic Cuff Blood Pressure Position [R Arm] Sitting 02 Sat by Pulse Oximetry 100 100 Oxygen Delivery Method Room Air Room Air Room Air Orders (Tests/Meds): ED MEDICATIONS Discontinued Medications Generic Name Dose Route Start Last Admin Trade Name Freq PRN Reason Stop Dose Admin Oxycodone HCl 5 mg 04/15/24 15:19 Oxycodone 5mg Immediate Release Tablet PO 05/15/24 15:18 Q6HP PRN Severe Pain (7-10) ORDERS Category Date Time Status Hand XR left minimum 3 views [XR hand LT min 3V] Stat Exams 04/15/24 15:22 Completed Medical Decision Narrative: In summary, patient is a 34-year-old male with PMHx tobacco use, history of Pseudomonas who presents to the ED for left hand injury prior to arrival. Patient states he was working on a vehicle with a kelby when the tire slipped, causing a crush injury to his left third, fourth, fifth digits. Patient has overlying superficial lacerations of the fourth and fifth digit. Nailbed intact. Full ROM present. No wrist tenderness. Neurovascular status intact. Upon initial exam, patient is alert, oriented and cooperative. Patient is hemodynamically stable. Differential diagnosis includes tuft fracture, displaced fracture, superficial laceration, among others Initial workup will be conducted with imaging of the left hand. Initial inventions include oxycodone, discussed with patient we can do a digital block he is agreeable to this. Will plan for antibiotic administration. My informal interpretation of the imaging is left fourth digit distal fracture. I discussed this with the patient. Patient eloped before he can get his medication or digital block. <Rojas Luke MD - Last Filed: 04/15/24 18:16> Vital Signs: 04/15/24 15:00 04/15/24 15:57 04/15/24 16:28 Temperature 98.2 F 99.1 F Temperature Source Oral Pulse Rate 66 82 Pulse Rate [Radial] 69 Respiratory Rate 24 18 Blood Pressure 135/80 135/80 Blood Pressure [R Arm] 160/86 H Blood Pressure Mean [R Arm] 110 Blood Pressure Source [R Arm] Automatic Cuff Blood Pressure Position [R Arm] Sitting 02 Sat by Pulse Oximetry 100 100 Oxygen Delivery Method Room Air Room Air Room Air Orders (Tests/Meds): ED MEDICATIONS Discontinued Medications Generic Name Dose Route Start Last Admin Trade Name Freq PRN Reason Stop Dose Admin Oxycodone HCl 5 mg 04/15/24 15:19 Oxycodone 5mg Immediate Release Tablet PO 05/15/24 15:18 Q6HP PRN Severe Pain (7-10) ORDERS Category Date Time Status Hand XR left minimum 3 views [XR hand LT min 3V] Stat Exams 04/15/24 15:22 Completed Medical Decision Narrative: In summary, patient is a 34-year-old male with PMHx tobacco use, history of Pseudomonas who presents to the ED for left hand injury prior to arrival. Patient states he was working on a vehicle with a kelby when the tire slipped, causing a crush injury to his left third, fourth, fifth digits. Patient has overlying superficial lacerations of the fourth and fifth digit. Nailbed intact. Full ROM present. No wrist tenderness. Neurovascular status intact. Upon initial exam, patient is alert, oriented and cooperative. Patient is hemodynamically stable. Differential diagnosis includes tuft fracture, displaced fracture, superficial laceration, among others Initial workup will be conducted with imaging of the left hand. Initial inventions include oxycodone, discussed with patient we can do a digital block he is agreeable to this. Will plan for antibiotic administration. My informal interpretation of the imaging is left fourth digit distal fracture. I discussed this with the patient. Patient eloped before he can get his medication or digital block. I was consulted by the MARIAN, and we discussed the complexity of the problems being addressed. I approved the treatment and management plan for this patient's care in the emergency department, thus performing a substantive portion of the medical decision making. Rojas Luke MD Critical Care <Kori Ball, [employer]GER - Last Filed: 04/15/24 17:45> Critical Care Time Critical Care Time: No
[2024-04-15 15:57] VITALS: BP 135/80; PULSE 66; O2SAT 100
--- NOTE | 2024-04-15 16:10 | PC.NURSE ---
pt states no has done anything for him or gave any pains meds so he got up and walked out pt did not have and yolanda
[2024-04-15 16:28] VITALS: BP 135/80; PULSE 82; RESP 18; TEMP 37.3; O2SAT 96
== END 2024-04-15 16:31 | disposition left against medical advice (07) ==
PROVIDERS: Emergency Provider Student in an Organized Health Care Education/Training Program; PCP Nurse Practitioner Family
DX: M79.642 Pain in left hand (principal); M79.645 Pain in left finger(s); F17.210 Nicotine dependence, cigarettes, uncomplicated; Z53.29 Procedure and treatment not carried out because of patient's decision for other reasons; X58.XXXA Exposure to other specified factors, initial encounter; Y93.89 Activity, other specified; Y92.9 Unspecified place or not applicable
CPT/HCPCS: 73130; 99283

== ENCOUNTER 2024-09-07 10:12 | Outpatient (CLI) | payer MEDICAID, SELFPAY ==
[2024-09-07 16:27] LABS: Hepatitis C Ab Qual. W/ RFX NEGATIVE (Negative)
[2024-09-08 06:37] LABS: Hepatitis B Surface Antigen Negative (Negative)
== END 2024-09-07 23:59 | disposition home or self-care (01) ==
LOC: LAB.DROPOF 09-10 10:13
PROVIDERS: PCP Family Medicine; Visit Provider Family Medicine
DX: Z11.59 Encounter for screening for other viral diseases (principal)
CPT/HCPCS: 86803; 87340; 87389